=== PATIENT | female | born 1940 | race Caucasian/White ===

== ENCOUNTER 2025-01-02 01:59 | Inpatient (IN) | payer MEDICARE, MEDICAID ==
[~2025-01-02] VITALS: Ht 162.6 cm; Wt 86.2 kg
[2025-01-02] MEDS ORDERED: ACETAMINOPHEN 325 MG/SUPP.RECT RC ONE (02:52)
[2025-01-02] MEDS ORDERED: ACETAMINOPHEN 650 MG/SUPP.RECT RC ONE (02:52)
[2025-01-02 03:21] LABS: PLATELET COUNT (AUTO) 264 K/uL (150-450); RED BLOOD CELL COUNT(AUTO) 3.81 MIL/uL (4.0-5.2); RED CELL DISTRIBUTION WIDTH 16.5 % (11.5-15.0); WHITE BLOOD COUNT (AUTO) 7.2 K/uL (4.3-11.0)
[2025-01-02 03:29] LABS: CALCIUM, SERUM 8.4 mg/dL (8.5-10.1); CREATININE 1.3 mg/dL (0.6-1.3); SODIUM SERUM 139 mmol/L (136-145); UREA NITROGEN, BLOOD 25 mg/dL (7-18)
[2025-01-02 03:37] LABS: INR 0.97 (0.91-1.10); LACTIC ACID 0.9 mmol/L (0.4-2.0)
[2025-01-02 03:44] LABS: ASPARTATE AMINOTRANSFERASE 41 U/L (15-37); TOTAL PROTEIN, SERUM 6.1 g/dL (6.4-8.2)
[2025-01-02] MEDS: IV NS 0.9% 1,000 ML BAG IV ONE (03:47)
[2025-01-02] MEDS: ACETAMINOPHEN 650 MG/SUPP.RECT RC ONE (03:47)
[2025-01-02] MEDS ORDERED: AZITHROMYCIN 500 MG VIAL ONE (03:48)
[2025-01-02] MEDS ORDERED: CEFTRIAXONE 1GM BAG (ER ONLY) 50 ML IV ONE (03:48)
[2025-01-02] MEDS: CEFTRIAXONE 1GM BAG (ER ONLY) 1 GM/50 ML PIGGYBACK IV ONE (03:59)
[2025-01-02] MEDS ORDERED: MAG HYDROX/AL HYDROX/SIMETH 30 ML UDC PO PRN (04:00)
[2025-01-02] MEDS ORDERED: ONDANSETRON HCL/PF 4 MG/2 ML VIAL IVP PRN (04:00)
[2025-01-02] MEDS ORDERED: Z GUARD REMEDY 4 OZ OINT TP PRN (04:00)
[2025-01-02] MEDS ORDERED: TEMAZEPAM 15 MG CAPSULE PO PRN (04:00)
[2025-01-02] MEDS ORDERED: ACETAMINOPHEN 325 MG TABLET PO PRN (04:00)
[2025-01-02] MEDS ORDERED: MAGNESIUM HYDROXIDE 30 ML UDC PO PRN (04:00)
[2025-01-02] MEDS: AZITHROMYCIN 500 MG in IV D5W 250 ML IV ONE (04:22)
[2025-01-02 04:35] LABS: APPEARANCE,URINE CLEAR (CLEAR); BLOOD, URINE NEGATIVE Ery/uL (NEGATIVE); LEUKOCYTE ESTERASE ,URINE NEGATIVE (NEGATIVE); NITRITE, URINE NEGATIVE (NEGATIVE); UGLUCOSE NEGATIVE (NEGATIVE)
[2025-01-02 05:06] LABS: AMPHETAMINE, URINE NEGATIVE (NEGATIVE); BARBITURATE, URINE NEGATIVE (NEGATIVE); BENZODIAZEPINE, URINE NEGATIVE (NEGATIVE); CANNABINOID, URINE NEGATIVE (NEGATIVE); COCCAINE, URINE NEGATIVE (NEGATIVE); OPIATE, URINE NEGATIVE (NEGATIVE)
[2025-01-02 05:20] VITALS: BP 157/77; TEMP 211.1; O2SAT 95
[2025-01-02] MEDS ORDERED: PANTOPRAZOLE 40 MG TABLET.DR PO SCH (07:30)
[2025-01-02] MEDS ORDERED: AZITHROMYCIN 500 MG in IV D5W 250 ML IV SCH (21:00)
[2025-01-02] MEDS ORDERED: CEFTRIAXONE 1 G in IV D5W 50 ML IV SCH (21:00)
== END 2025-01-02 06:05 | disposition left against medical advice (07) | DRG 195 ==
LOC: ER 02:22 → TELE1 04:49
PROVIDERS: ADMIT Nurse Practitioner Acute Care; ATTEND Nurse Practitioner Acute Care
DX: J18.9 Pneumonia, unspecified organism (principal); F19.10 Other psychoactive substance abuse, uncomplicated; I10 Essential (primary) hypertension
CPT/HCPCS: 36415; 70450-TC; 71045-TC; 80048-TC; 80076-TC; 83605-TC; 84484-TC; 85025-TC; 85027-TC; 85730-TC; 87040-TC; 87086-TC; G0378; J0456; J0696; J7060